=== PATIENT | female | born 1930 | race Caucasian/White ===

== ENCOUNTER → 2016-06-13 | Outpatient (CLI) | payer OTHER ==
[~2016-06-13] MED LIST: ADULT LOW DOSE81 M1 PO; ALPRAZOLAM0.25 MG PO; AMLODIPINE BESYL5 MG PO; ASPIRIN81 M1 PO; AZOR 5/20 MG1 TABLET PO; BENICAR20 MG PO; CENTRUM SILVER1 EAC3 PO; CENTRUM SILVER1 EACH PO; CITALOPRAM HBR20 MG PO; CLONIDINE HCL0.1 MG PO; COLACE100 MG PO; Desyrel PO; FUROSEMIDE40 MG PO; Furosemide PO; GUANFACINE HCL PO; GUANFACINE HCL2 MG PO; K-DUR10 ME2 PO; LASIX40 MG PO; LEVOTHYROXINE75 MCG PO; LEVOXYL75 MCG PO; LOPRESSOR50 MG PO; LOSARTAN POTASS50 MG PO; Levothroid,Synthroid PO; MAVIK4 MG PO; Mavik PO; NITROSTAT0.4 MG SL; NORCO 5/3251 TABLET PO; PRAVACHOL80 MG PO; PRILOSEC20 MG PO; SENOKOT S,PE1 TABLET PO; SIMVASTATIN20 MG PO; SYSTANE 0.3-0.1 EACH BOTH EYES; TRANDOLAPRIL4 MG PO; TRAZODONE HCL50 MG PO; TUMS500 MG PO; TYLENOL EXTRA500 MG PO; Tylenol Regular Stre PO; XANAX0.125 MG PO; XANAX0.25 MG PO; XANAX2 MG PO; XARELTO15 MG PO; ZOCOR80 MG PO; ZOFRAN4 MG PO; Zocor PO
== END | disposition home or self-care (01) ==
DX: M16.12 Unilateral primary osteoarthritis, left hip (principal); R26.2 Difficulty in walking, not elsewhere classified; M62.81 Muscle weakness (generalized); M25.652 Stiffness of left hip, not elsewhere classified
CPT/HCPCS: 97110 GP; 97150 GO; 97161 GP; 97165 GO; G8978 GP; G8979 GP; G8980 GP; G8987 GO; G8988 GO; G8989 GO

== ENCOUNTER 2016-07-24 05:29 | Inpatient (IN) | payer OTHER ==
[~2016-07-24] VITALS: Ht 152.4 cm; Wt 73.0 kg
[~2016-07-24 05:29] MED LIST changes: +IRON325 M1 PO
[2016-07-24] MEDS ORDERED: XANAX0.25 MG PO (05:57)
[2016-07-24 06:00] VITALS: BP 135/62
[2016-07-24 09:58] LABS: HEMATOCRIT 38.9 % (36.0-46.0); MCH 30.2 PG (29.0-34.0); MCHC 30.6 G/DL (30.0-36.0); MCV 98.7 FL (83-99); MEAN PLAT.VOLUME 9.7 uM^3 (9.5-12.4); RBC DIS.WIDTH-CV 12.8 % (11.8-14.6); RBC DIS.WIDTH-SD 46.5 % (39-53); RED BLOOD COUNT 3.94 M/uL (3.80-5.20); WHITE BLOOD COUNT 9.1 K/uL (4.1-10.2)
[2016-07-24 11:07] VITALS: BP 100/61
[2016-07-24 12:01] LABS: PLATELET COUNT 122 K/uL (156-360)
[2016-07-24 15:35] VITALS: BP 120/51
[2016-07-24 20:02] VITALS: BP 138/62
[2016-07-24 23:44] VITALS: BP 118/56
[2016-07-25 03:40] VITALS: BP 108/51
[2016-07-25 05:34] LABS: HEMATOCRIT 33.8 % (36.0-46.0); MCV 98.8 FL (83-99)
[2016-07-25 06:18] LABS: ANION GAP 6 MEQ/L (2-14); CHLORIDE 103 MEQ/L (99-109); GFR ESTIMATE (CALCULATED) > 59 mL/min/; GLUCOSE 129 mg/dL (70-99); POTASSIUM 4.3 MEQ/L (3.7-5.4); SAMPLE HEMOLYSIS CHECK 0; SAMPLE ICTERIC CHECK 0; SAMPLE LIPEMIA CHECK 0; SODIUM 135 MEQ/L (136-147); UREA NITROGEN (BUN) 13 mg/dL (9-23)
[2016-07-25 08:26] VITALS: BP 127/59
[2016-07-25] MEDS ORDERED: LOVENOX30 MG/0.3 SC ×2 (09:04→09:36)
[2016-07-25] MEDS ORDERED: ENDOCET 5-3251 EACH PO (09:04)
[2016-07-25 11:32] VITALS: BP 128/61
[2016-07-25 15:53] VITALS: BP 118/52
[2016-07-25 20:17] VITALS: BP 117/54
[2016-07-26 00:22] VITALS: BP 158/76
[2016-07-26 04:00] VITALS: BP 179/96
[2016-07-26 07:53] VITALS: BP 135/62
[2016-07-26 10:57] LABS: HEMATOCRIT 30.6 % (36.0-46.0); MCV 97.1 FL (83-99)
[2016-07-26 11:01] VITALS: BP 116/56
[2016-07-26 15:51] VITALS: BP 137/63
[2016-07-26 20:15] VITALS: BP 139/60
[2016-07-27 00:10] VITALS: BP 142/63
[2016-07-27 04:00] VITALS: BP 180/77
[2016-07-27 08:08] VITALS: BP 123/74
[2016-07-27] MEDS ORDERED: LIDOCAINE700 MG TD (08:27)
[2016-07-27 11:30] VITALS: BP 122/58; BP 140/65
== END 2016-07-27 11:35 | DRG 470 ==
LOC: 2SOUTH → 3WEST 05:29 → 2SOUTH 10:34 → 3WEST 11:00 → 2SOUTH 14:22 → 3WEST 07-27 11:35
PROVIDERS: Orthopaedic Surgery; Physician Assistant
PROC: 0SRB02A Replacement of Left Hip Joint with Metal on Polyethylene Synthetic Substitute, Uncemented, Open Approach (ICD-10-PCS; principal; 2016-07-24)
DX: M16.12 Unilateral primary osteoarthritis, left hip (principal); E78.5 Hyperlipidemia, unspecified; E03.9 Hypothyroidism, unspecified; I08.0 Rheumatic disorders of both mitral and aortic valves; I25.10 Atherosclerotic heart disease of native coronary artery without angina pectoris; Z87.891 Personal history of nicotine dependence; E11.9 Type 2 diabetes mellitus without complications; F41.9 Anxiety disorder, unspecified; E66.3 Overweight; Z68.32 Body mass index [BMI] 32.0-32.9, adult; I65.29 Occlusion and stenosis of unspecified carotid artery
CPT/HCPCS: 71020; 73501; 80048; 85014; 85018; 85027; J0690; J1170; J1200; J1650; J2175; J2405; J3370; J7030; J7120

== ENCOUNTER 2016-09-16 07:50 | Emergency (ER) | payer OTHER ==
[~2016-09-16] VITALS: Ht 149.9 cm; Wt 72.7 kg
[~2016-09-16 07:50] MED LIST changes: +ENDOCET 5-3251 EACH PO; +LIDOCAINE700 MG TD; +LOVENOX30 MG/0.3 SC
[2016-09-16 08:52] LABS: BASOPHIL COUNT 0.1 K/uL (0-0.1); EOSINOPHIL (%) 0.1 % (0-5); HEMATOCRIT 42.4 % (36.0-46.0); IMMATURE GRANULOCYTE (%) 0.9 % (0.0-0.7); IMMATURE GRANULOCYTE COUNT 0.1 K/uL; INSTRUMENT ABS NEUTROPHIL CT 13.1 K/uL; LYMPHOCYTE COUNT 0.5 K/uL (1.0-2.8); MCH 29.8 PG (29.0-34.0); MCHC 31.6 G/DL (30.0-36.0); MEAN PLAT.VOLUME 9.4 uM^3 (9.5-12.4); MONOCYTE (%) 3.1 % (3-12); MONOCYTE COUNT 0.4 K/uL (0-0.8); NEUTROPHIL (%) 92.3 % (45-76); NEUTROPHIL COUNT 13.1 K/uL (1.8-6.4); RBC DIS.WIDTH-CV 13.1 % (11.8-14.6); RBC DIS.WIDTH-SD 45.3 % (39-53)
[2016-09-16 09:09] LABS: MCV 94.2 FL (83-99); PLATELET COUNT 259 K/uL (156-360); WHITE BLOOD COUNT 14.2 K/uL (4.1-10.2)
[2016-09-16 09:27] LABS: CHLORIDE 103 mEq/L (99-109); POTASSIUM 4.5 mEq/L (3.7-5.4); SODIUM 137 mEq/L (136-147)
[2016-09-16 09:29] LABS: GLUCOSE 176 mg/dL (70-99)
[2016-09-16 09:30] LABS: ANION GAP 10 MEQ/L (2-14)
[2016-09-16 09:31] LABS: TOTAL BILIRUBIN 0.7 mg/dL (0.0-1.0)
[2016-09-16 09:33] LABS: ALKALINE PHOSPHATASE 91 IU/L (3-129); GFR ESTIMATE (CALCULATED) > 59 mL/min/
[2016-09-16 09:34] LABS: UREA NITROGEN (BUN) 16 mg/dL (9-23)
[2016-09-16 09:36] LABS: LIPASE 18 U/L (1.0-51.0)
[2016-09-16 11:47] LABS: ADD MIUA? YES; BILIRUBIN NEGATIVE; BLOOD NEGATIVE; COLOR YELLOW ((YELLOW)); GLUCOSE (STRIP) NEGATIVE; KETONES NEGATIVE; LEUKOCYTES TRACE; NITRITE POSITIVE; PROTEIN (STRIP) NEGATIVE; SPECIFIC GRAVITY 1.016 (1.000-1.030); UROBILINOGEN 0.2 MG/DL (0.2-1.0)
[2016-09-16 12:13] LABS: HYALINE CASTS 0-5 /LPF; MUCUS TRACE /LPF; RED BLOOD CELLS 0-5 /HPF (0-5); UCUL ADDED? YES
[2016-09-16 12:16] LABS: BACTERIA 3+ /HPF; CRYSTALS PRESENT; EPITHELIAL CELLS 1+ /HPF
[2016-09-16] MEDS ORDERED: ZOFRAN ODT4 MG PO (15:56)
[2016-09-16] MEDS ORDERED: BENTYL20 MG PO (15:56)
[2016-09-16] MEDS ORDERED: BACTRIM,SEPT1 TABLET PO (15:56)
[2016-09-16 16:13] LABS: C DIFF TOXIN ND (NEGATIVE)
[2016-09-16 19:17] LABS: C DIFF TOXIN ND (NEGATIVE)
[2016-09-16 19:33] VITALS: BP 155/65
== END 2016-09-16 19:58 | disposition home or self-care (01) ==
LOC: EME → EDBD 07:50 → EME 19:58
PROVIDERS: Emergency Medicine
DX: K52.9 Noninfective gastroenteritis and colitis, unspecified (principal); N39.0 Urinary tract infection, site not specified; E11.9 Type 2 diabetes mellitus without complications; E78.5 Hyperlipidemia, unspecified; I10 Essential (primary) hypertension; K21.9 Gastro-esophageal reflux disease without esophagitis; E03.9 Hypothyroidism, unspecified; Z86.73 Personal history of transient ischemic attack (TIA), and cerebral infarction without residual deficits; Z87.891 Personal history of nicotine dependence; Z95.2 Presence of prosthetic heart valve; Z96.653 Presence of artificial knee joint, bilateral; Z96.642 Presence of left artificial hip joint
CPT/HCPCS: 80053; 81003; 83690; 85025; 87086; 87493; 93005; 99281; 99285; J2405; J2765; J7030